=== PATIENT | female | born 1995 | race Caucasian/White ===

== ENCOUNTER 2016-12-21 10:12 | Emergency (ER) | payer OTHER ==
[~2016-12-21] VITALS: Ht 154.9 cm; Wt 72.0 kg
[2016-12-21 10:14] VITALS: BP 127/73; PULSE 55; RESP 17; TEMP 97.9; O2SAT 99
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
[2016-12-21] MEDS ORDERED: ORPHENADRINE INJ 60 MG/2 ML AMP IM ONE (10:45)
[2016-12-21] MEDS ORDERED: KETOROLAC TROMETHAMINE 60 MG/2 ML (IM) VIAL IM ONE (10:45)
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
[2016-12-21] MEDS ORDERED: IBUP800T23 PO (11:09)
[2016-12-21] MEDS ORDERED: CYCL5TAB PO (11:09)
== END 2016-12-21 11:50 | disposition home or self-care (01) ==
LOC: NEPD 10:12
DX: S16.1XXA Strain of muscle, fascia and tendon at neck level, initial encounter (principal); V89.2XXA Person injured in unspecified motor-vehicle accident, traffic, initial encounter
CPT/HCPCS: 73502; 84703; 96372; 99284; J1885; J2360; L0150